=== PATIENT | male | born 1995 | race Caucasian/White ===

== ENCOUNTER 2018-03-15 10:28 | Inpatient (IN) | payer OTHER ==
[2018-03-15 12:04] LABS: HEMATOCRIT 45.4 % (42.0-52.0); HEMOGLOBIN 15.6 g/dl (13.5-17.5); MEAN CORPUSCULAR HEMOGLOBIN 29.8 pg (27.0-33.0); MEAN CORPUSCULAR HGB CONC 34.4 g/dl (32.0-36.5); MEAN CORPUSCULAR VOLUME 86.6 fl (80.0-96.0); PLATELET COUNT, AUTOMATED 242 10^3/uL (150-450); RED BLOOD COUNT 5.24 10^6/uL (4.30-6.10); RED CELL DISTRIBUTION WIDTH 11.7 % (11.5-14.5); WHITE BLOOD COUNT 7.1 10^3/uL (4.0-10.0)
[2018-03-15 12:26] LABS: AMPHETAMINES LEVEL URINE NEGATIVE (NEGATIVE); BARBITURATES URINE NEGATIVE (NEGATIVE); BENZODIAZEPINES URINE NEGATIVE (NEGATIVE); CANNABINOIDS URINE POSITIVE (NEGATIVE); COCAINE METABOLITE URINE NEGATIVE (NEGATIVE); METHADONE URINE NEGATIVE (NEGATIVE); OPIATES URINE NEGATIVE (NEGATIVE); PHENCYCLIDINE URINE NEGATIVE (NEGATIVE)
[2018-03-15] MEDS: PSEUDOEPHEDRINE 30 MG TAB PO (12:45)
[2018-03-15] MEDS: ACETAMINOPHEN TAB 650MG DOSE (2X325MG) PO (12:45)
[2018-03-15 12:47] LABS: ACETAMINOPHEN LEVEL < 2.0 UG/ML (10.0-30.0); ALBUMIN 4.4 GM/DL (3.2-5.2); ALBUMIN/GLOBULIN RATIO 1.52 (1.00-1.93); ALKALINE PHOSPHATASE 85 U/L (45-117); ALT/SGPT 20 U/L (12-78); ANION GAP 5 MEQ/L (8-16); AST/SGOT 16 U/L (7-37); BILIRUBIN,DIRECT 0.2 MG/DL (0.0-0.2); BILIRUBIN,TOTAL 0.9 MG/DL (0.2-1.0); BLOOD UREA NITROGEN 8 MG/DL (7-18); CALCIUM LEVEL 8.8 MG/DL (8.5-10.1); CARBON DIOXIDE LEVEL 31 MEQ/L (21-32); CHLORIDE LEVEL 106 MEQ/L (98-107); CREATININE FOR GFR 1.26 MG/DL (0.70-1.30); ETHYL ALCOHOL (ETHANOL) < 0.003 % (0.000-0.010); GLUCOSE, FASTING 100 MG/DL (70-100); POTASSIUM SERUM 4.5 MEQ/L (3.5-5.1); SALICYLATE LEVEL < 1.7 MG/DL (5.0-30.0); SODIUM LEVEL 142 MEQ/L (136-145); TOTAL PROTEIN 7.3 GM/DL (6.4-8.2)
[2018-03-15] MEDS: guaiFENesin ER 600 MG TAB PO ×2 (13:19→21:00)
[2018-03-15] MEDS ORDERED: MAALOX 30 ML SUSP *UDC PO (20:45)
[2018-03-15] MEDS ORDERED: MOM 30ML SUSPENSION UDC PO (20:45)
[2018-03-16] MEDS: NICOTINE 14 MG/24 HR TRANSDERMAL TD (11:11)
[2018-03-16] MEDS: CitaloPRAM (CeleXA) 10 MG TABLET PO (14:26)
[2018-03-16] MEDS: traZODone 50 MG TAB PO (21:24)
[2018-03-17] MEDS: NICOTINE 14 MG/24 HR TRANSDERMAL TD (09:00)
[2018-03-17] MEDS: CitaloPRAM (CeleXA) 10 MG TABLET PO (09:19)
[2018-03-17] MEDS: traZODone 50 MG TAB PO (21:24)
[2018-03-18] MEDS: NICOTINE 14 MG/24 HR TRANSDERMAL TD (08:22)
[2018-03-18] MEDS: CitaloPRAM (CeleXA) 20 MG TAB PO (08:22)
[2018-03-18] MEDS: traZODone 100 MG TAB PO (21:22)
[2018-03-19] MEDS: NICOTINE 14 MG/24 HR TRANSDERMAL TD (08:37)
[2018-03-19] MEDS: CitaloPRAM (CeleXA) 20 MG TAB PO (08:38)
[2018-03-19] MEDS: traZODone 100 MG TAB PO (21:36)
[2018-03-20] MEDS: CitaloPRAM (CeleXA) 20 MG TAB PO (08:29)
[2018-03-20] MEDS: NICOTINE 14 MG/24 HR TRANSDERMAL TD (09:00)
[2018-03-20] MEDS: ACETAMINOPHEN TAB 650MG DOSE (2X325MG) PO (18:27)
[2018-03-20] MEDS: traZODone 100 MG TAB PO (20:48)
[2018-03-21] MEDS: NICOTINE 14 MG/24 HR TRANSDERMAL TD (08:34)
[2018-03-21] MEDS: CitaloPRAM (CeleXA) 20 MG TAB PO (08:35)
== END 2018-03-21 11:15 | disposition home or self-care (01) | DRG 885 ==
LOC: M ED 10:28 → M ED INP 20:39 → M PSY 22:50
DX: F33.9 Major depressive disorder, recurrent, unspecified (principal); F41.0 Panic disorder [episodic paroxysmal anxiety]; F42.9 Obsessive-compulsive disorder, unspecified; Z63.5 Disruption of family by separation and divorce; Z59.8 Other problems related to housing and economic circumstances; F17.200 Nicotine dependence, unspecified, uncomplicated; Z88.0 Allergy status to penicillin